=== PATIENT | female | born 1965 | race African-American/Black ===

== ENCOUNTER 2016-12-03 11:03 | Emergency (ER) | payer MEDICAID ==
[~2016-12-03] VITALS: Ht 157.5 cm; Wt 70.0 kg
[2016-12-03 12:08] VITALS: BP 166/99
[2016-12-03] MEDS ORDERED: METHOCARBAMOL 500MG TABLET PO ONE (14:30)
[2016-12-03] MEDS ORDERED: IBUPROFEN 600MG TABLET PO ONE (14:30)
[2016-12-03] MEDS ORDERED: IBUPROFEN 600MG TABLET ONE (14:45)
== END 2016-12-03 16:16 | disposition home or self-care (01) ==
LOC: ER 14:54
DX: S49.92XA Unspecified injury of left shoulder and upper arm, initial encounter (principal); M54.2 Cervicalgia; M54.5 Low back pain; R51 Headache; V43.52XA Car driver injured in collision with other type car in traffic accident, initial encounter; Y93.89 Activity, other specified; Y92.410 Unspecified street and highway as the place of occurrence of the external cause; R03.0 Elevated blood-pressure reading, without diagnosis of hypertension; F17.211 Nicotine dependence, cigarettes, in remission
CPT/HCPCS: 81025; 99283

== ENCOUNTER 2022-07-30 11:14 | Emergency (ER) | payer MEDICAID, OTHER ==
[~2022-07-30] VITALS: Ht 157.5 cm; Wt 70.0 kg
[2022-07-30 11:23] VITALS: BP 192/105
[2022-07-30] MEDS ORDERED: IBUPROFEN 600MG TABLET PO STA (12:12)
[2022-07-30] MEDS ORDERED: ACETAMINOPHEN 325MG TABLET PO STA (12:12)
[2022-07-30] MEDS ORDERED: CYCL5TAB MT (13:51)
[2022-07-30] MEDS ORDERED: IBUP-2028 MT (13:51)
== END 2022-07-30 14:26 | disposition home or self-care (01) ==
LOC: ER 11:14
DX: M79.10 Myalgia, unspecified site (principal); I10 Essential (primary) hypertension; V49.59XA Passenger injured in collision with other motor vehicles in traffic accident, initial encounter; Y93.89 Activity, other specified; Y92.89 Other specified places as the place of occurrence of the external cause; Y99.8 Other external cause status
CPT/HCPCS: 71045; 99284

== ENCOUNTER 2024-04-30 15:20 | Emergency (ER) | payer MEDICAID, OTHER ==
[~2024-04-30] VITALS: Ht 157.5 cm; Wt 69.0 kg
[~2024-04-30 15:20] MED LIST: CYCL5TAB MT; IBUP-2028 MT
[2024-04-30 15:27] VITALS: TEMP 98.7; O2SAT 100
[2024-04-30] MEDS: IBUPROFEN 600MG TABLET PO ONE (17:01)
[2024-04-30] MEDS: ACETAMINOPHEN 500MG TABLET PO ONE (17:01)
[2024-04-30] MEDS: LIDOCAINE HCL/EPINEPHRINE 1%-EPI 1:100,000 20ML VIAL INFIL ONE (17:04)
[2024-04-30] MEDS ORDERED: CEPH500T MT (17:29)
[2024-04-30 17:33] VITALS: BP 185/132; PULSE 72; RESP 16; O2SAT 98
[2024-04-30] MEDS ORDERED: CLONIDINE 0.1MG TABLET PO NR (18:15)
== END 2024-04-30 17:49 | disposition home or self-care (01) ==
LOC: ER 15:20
DX: L02.31 Cutaneous abscess of buttock (principal); I10 Essential (primary) hypertension
CPT/HCPCS: 99283; 10060; J3490